=== PATIENT | female | born 1930 | race Caucasian/White ===

== ENCOUNTER 2018-06-05 12:35 | Emergency (ER) | payer MEDICARE ==
[~2018-06-05] VITALS: Ht 162.6 cm; Wt 61.2 kg
[2018-06-05 12:46] VITALS: BP_SYST 175
--- NOTE | 2018-06-05 12:49 | NUR ---
Patient to ER bed 01 for evaluation. Side rails up.
--- NOTE | 2018-06-05 13:00 | NUR ---
REPORT RECEIVED FROM TATIANA FREGOSO. PATIENT CURRENTLY IN RADIOLOGY.
--- NOTE | 2018-06-05 13:15 | NUR ---
Returned from radiology VIA [facility]. LESLIE MANUEL at bedside examining patient.
[2018-06-05] MEDS ORDERED: KETOROLAC TROMETHAMINE 30 MG VIAL IM ONE (13:30)
[2018-06-05] MEDS ORDERED: ONDANSETRON 4 MG ODT TAB PO ONE (13:30)
--- NOTE | 2018-06-05 13:30 | NUR ---
PATIENT SITTING SUPINE ON BED. PATIENT IN NO ACUTE DISTRESS. NO OBJECTIVE S/SX OF PAIN WHILE AT REST. PATIENT WITH C/O ACHING/SHARP MID TO LOWER BACK PAIN SINCE THIS AFTERNOON. PATIENT STATES THAT SHE TRIPPED AND FELL WHILE WALKING OUT OF THE BATHROOM. DENIES OF ANY HEAD TRAUMA OR KO. NO HEADACHE, DIZZINESS, OR VOMITING. PT WITH C/O SLIGHT NAUSEA. NO BRUISING, REDNESS, SWELLING, OR HEMATOMA NOTED THROUGHOUT THE PATIENT'S BODY. PAIN = 10/10. REST AND RELAXATION ENCOURAGED. MD AWARE OF PT'S CONDITION AND CHIEF COMPLAINT. WILL CONTINUE TO MONITOR.
--- NOTE | 2018-06-05 13:35 | NUR ---
ZOFRAN ODT ADMINISTERED FOR NAUSEA AND TOLERATED WELL. TORADOL IM ADMINISTERED FOR MID TO LOWER BACK PAIN = 10/10. TOLERATED WELL. PATIENT LAYING IN SUPINE FOR COMFORT. WILL CONTINUE TO MONITOR.
--- NOTE | 2018-06-05 14:35 | NUR ---
PATIENT VERBALIZED GOOD RELIEF FROM BACK PAIN = 2/10; TOLERABLE VERBALIZED. NO OBJECTIVE S/SX OF PAIN. PATIENT VERBALIZED RELIEF FROM NAUSEA. NO EPISODES OF VOMITING. PATIENT'S BP = 191/87. LESLIE CONNER MADE AWARE. CLONIDINE ADMINISTERED ORDERED. WILL CONTINUE TO MONITOR.
[2018-06-05] MEDS ORDERED: cloNIDine HCL 0.1 MG TABLET PO ONE (14:45)
--- NOTE | 2018-06-05 15:01 | NUR ---
PT'S BLOOD PRESSURE IMPROVED = 167/80. LESLIE CONNER MADE AWARE WITH OK TO DISCHARGE PATIENT.
[2018-06-05 15:02] VITALS: BP_SYST 167
--- NOTE | 2018-06-05 15:02 | NUR ---
Patient given written and verbal discharge instructions and verbalizes understanding. ER MD discussed with patient the results and treatment provided. Patient in stable condition. ID arm band removed. Rx of IBUPROFEN given. Patient educated on pain management and to follow up with PMD. Pain Scale 2/10; TOLERABLE VERBALIZED. NO OBJECTIVE S/SX OF PAIN OBSERVED. Opportunity for questions provided and answered. Medication side effect fact sheet provided. PATIENT IN GOOD CONDITION AND IN NO ACUTE DISTRESS. PATIENT DISCHARGED VIA WHEELCHAIR.
== END 2018-06-05 15:02 | disposition home or self-care (01) ==
LOC: SED 12:35
DX: S32.028A Other fracture of second lumbar vertebra, initial encounter for closed fracture (principal); S29.012A Strain of muscle and tendon of back wall of thorax, initial encounter; I10 Essential (primary) hypertension; Z90.49 Acquired absence of other specified parts of digestive tract; W01.0XXA Fall on same level from slipping, tripping and stumbling without subsequent striking against object, initial encounter; Y93.89 Activity, other specified; Y92.89 Other specified places as the place of occurrence of the external cause; Y99.8 Other external cause status
CPT/HCPCS: 72072; 72110; 96372; 99283; J1885; Q0162

== ENCOUNTER 2020-05-10 09:51 | Emergency (ER) | payer MEDICARE ==
[~2020-05-10] VITALS: Ht 162.6 cm; Wt 61.2 kg
[2020-05-10] MEDS ORDERED: DIPH-TET-PERTUS Vaccine 0.5 ML VIAL (ADACEL) I.M. ONE (10:15)
[2020-05-10 10:22] VITALS: BP_SYST 157
--- NOTE | 2020-05-10 10:25 | NUR ---
Patient triaged and placed in waiting room. VSS and patient appears in no acute distress at this time. Accompanied by self , awaiting available bed, and MD notified of need for MSE.
--- NOTE | 2020-05-10 10:28 | NUR ---
Pt brought by self, A&Ox4, pt presents to ER wth L knee pain after fallin on , swelling and bruising noted , skin pink and warm, cap refill <3, VSS, pt on wheelchair, will cont to monitor.
--- NOTE | 2020-05-10 10:32 | NUR ---
Dr Thomas evaluating patient in the tent
[2020-05-10 13:01] VITALS: BP_SYST 157
--- NOTE | 2020-05-10 13:01 | NUR ---
Patient given written and verbal discharge instructions and verbalizes understanding. ER MD discussed with patient the results and treatment provided. Patient in stable condition. ID arm band removed. No prescriptions given. Patient educated on pain management and to follow up with PMD. Pain Scale 3. Opportunity for questions provided and answered. Medication side effect fact sheet provided.
== END 2020-05-10 13:01 | disposition home or self-care (01) ==
LOC: SED 09:51
DX: S80.02XA Contusion of left knee, initial encounter (principal); I10 Essential (primary) hypertension; W01.0XXA Fall on same level from slipping, tripping and stumbling without subsequent striking against object, initial encounter; Y93.89 Activity, other specified; Y92.89 Other specified places as the place of occurrence of the external cause; Y99.8 Other external cause status
CPT/HCPCS: 73552; 73564; 73590-TC; 90715; 99284